=== PATIENT | male | born 2005 | race Caucasian/White ===

== ENCOUNTER 2025-04-16 14:27 | Emergency (ER) | payer BC, SELFPAY ==
--- OUTSIDE RECORDS SUMMARY | 2025-04-16 14:32 | XMS_ITS | Clinical Summary ---
Author Organization [email or web address] Address [address] [place] [address] Care Team Providers Care Spd Tech Name Role Phone Unavailable Primary Care Provider Unavailabl e Source Comments [email or web address],non-owned Affiliates and Associated Physician Practices is amultiple site organization consisting of ambulatory clinics and hospital sitesin [place], [place], [place] and [place]. This disclosure is being madepursuant to the Care Everywhere program and may not contain all information available regarding this patient. Last updated 18.[email or web address] Allergies No known active allergies Medications * Be aware that medications may not be up to date on this document. Alwaysverify current medications with the patient. 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 Gender Identity Not on file Sexual Orientation Not on file Last Filed Vital Signs Vital Sign Reading Time Taken Comments Blood Pressure - - Pulse - - Temperature - - Respiratory Rate - - Oxygen Saturation - - Inhaled Oxygen Concentration - - Weight 57.7 kg (127 lb 3.3 oz) 01/01/2016 8:22 A M CDT Height 158 cm (5' 2.21) 01/01/2016 8:22 AM CDT Body Mass Index 23.11 01/01/2016 8:22 AM CDT Plan of Treatment Health Maintenance Due Date Last Done Comments HIV SCREENING 2018 HPV VACCINE (1 - Male 3-dose series) 2018 MENINGOCOCCAL (Group B) VACC INE SHARED DECISION-MAKING (1 of 2 - Standard) 2019 HEPATITIS C SCREENING 02/04/2021 DTAP/TDAP/TD VACCINES (1 - Tdap) 2022 HEPATITIS B VACCINE (1 of 3 - 19+ 3-dose series) 2022 COVID-19 VACCINE (1 - 2023-2 5 season) 2024 DEPRESSION SCREENING 10/17/2024 INFLUENZA VACCINE (Season Ended) 2025 ZOSTER VACCINE (1 of 2) 2053 HIB VACCINE Aged Out No longer eligi ble based on patient's age to complete this topic MENINGOCOCCAL GROUPS A/C/Y/W VACCINE Aged Out No longer eligible b ased on patient's age to complete this topic PNEUMOCOCCAL VACCINE Aged Out No long er eligible based on patient's age to complete this topic Insurance
--- NOTE | 2025-04-16 15:07 | ECG_ITS ---
Test Date: 2025-04-16 15:38:51 Measurements Intervals [place] Rate: 79 P: 36 WV: 150 QRS: 51 QRSD: 88 T: 40 QT: 336 QTc: 386 Interpretive Statements SINUS RHYTHM WITH SINUS ARRHYTHMIA No previous ECG available for comparison Electronically Signed On 04-16-2025 18:14:15 CDT by Didier He
[2025-04-16 15:28] VITALS: BP 121/73; PULSE 86; RESP 16; TEMP 36.6; O2SAT 100; O2SAT 99
--- OUTSIDE RECORDS SUMMARY | 2025-04-16 15:56 | XMS_ITS | Clinical Summary ---
Author Organization [facility] Address [address] [place] [id number] Care Team Providers Care Broker Agricultural Produce Name Role Phone None, Provider MD Primary Care Provider Unavaila ble Allergies No known active allergies Medications No known medications Immunizations Immunization Administration Dates Next Due Tdap (Boostrix) 02/11/2024 Social History Tobacco Use Types Packs/Day Years Used Date Smoking Tobacco: Never Assessed Sex and Gender Information Value Date Recorded Sex Assigned at Not on file Legal Sex Male 8:39 AM CDT Gender Identity Not on file Sexual Orientation Not on file Last Filed Vital Signs Vital Sign Reading Time Taken Comments Blood Pressure 115/84 02/11/2024 9:00 AM CDT Pulse 81 02/11/2024 9:00 AM CDT Temperature 36.6 C (97.8 F) 02/11/2024 9:00 AM CDT Respiratory Rate 18 02/11/2024 9:00 AM CDT Oxygen Saturation 97% 02/11/2024 9:00 AM CDT Inhaled Oxygen Concentration - - Weight 104.3 kg (230 lb) 02/11/2024 9:00 AM CDT Height 177.8 cm (5' 10) 02/11/2024 9:00 AM CDT Body Mass Index 33 02/11/2024 9:00 AM CDT Plan of Treatment Health Maintenance Due Date Last Done Comments Annual Physical 2006 Meningococcal B Vaccine (1 of 2 - Standard) 2019 Hepatitis C 2021 COVID-19 Vaccine (2 - season) 2024 06/23/2021 DTaP, Tdap and Td Vaccines (8 - Td or Tdap) 02/10/2034 02/11/2024, 06/27/2014, 02/13/2008, Additional history exists Hepatitis B Vaccines Completed 2003, 2003, 2003 Pneumococcal Vaccine: Pediatrics (0 to 5 Years) and At-Risk Patients (6 to 49 Years) Aged Out 2003, 2003, 2003, Additional history exists No longer eligible based on patient's age to complete this topic Meningococcal Vaccine Aged Out 06/27/2014 No jeni paulo eligible based on patient's age to complete this topic HPV Vaccines Completed 12/09/2017, 06/08/2017 RSV Immunizations Under 20 Months Aged Out No longer eligible based on patient's age to complete this topic Insurance [facility] Care Teams Broker Agricultural Produce Relationship Specialty Start Date End Date None, Provider, PCP - General UNKNOWN PHYSICIAN SPECIALTY 02/11/24
--- OUTSIDE RECORDS SUMMARY | 2025-04-16 15:56 | XMS_ITS | Clinical Summary ---
Author Organization [facility] [employer] Address [address] [place] [address] Care Team Providers Care Funeral Planning Counselor Name Role Phone Unavailable Primary Care Provider Unavailabl e Source Comments [facility] [employer],non-owned Affiliates and Associated Physician Practices is amultiple site organization consisting of ambulatory clinics and hospital sitesin [place], [place], [place] and [place]. This disclosure is being madepursuant to the Care Everywhere program and may not contain all information available regarding this patient. 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
--- NOTE | 2025-04-16 16:11 | ED_ITS ---
HPI - Syncope General Chief Complaint: Syncope Stated Complaint: syncopal episode at work Time Seen by Provider: 04/16/25 15:06 History of Present Illness HPI narrative: 20-year-old otherwise healthy male with no past medical history presenting to the emergency department after a syncopal event. This event was witnessed by coworkers and was proceeded by episodes of him hiccuping. He states he was eating lunch and just finished and he felt like he had to hiccup and that sensation lingered briefly in his upper chest and throat and he passed out very briefly for about 10-15 seconds before regaining consciousness and acting appropriately without any postictal phase. No seizure activity such as tremulousness or extremity shaking. No history of this happening to in the past. No headache or vision changes. Patient denies any chest discomfort, shortness of breath, back pain. No weakness or fatigue he is ambulatory. Does not take any prescription medications. Takes medications for allergies otherwise no medical conditions. Related Data Allergies Allergy/AdvReac Type Severity Reaction Status Date / Time No Known Allergies Allergy Mild Verified 08/08/10 21:57 Review of Systems 2 Review of Systems: As reviewed above in HPI Exam 2 Narrative: GENERAL: [Well-appearing, well-nourished, and in no acute distress.] HEAD: [Normocephalic, atraumatic.] EYES: [PERRLA and EOMI.] ENT: Nares clear, no rhinorrhea or epistaxis. Mucous membranes moist. NECK: Supple. CHEST: [Clear to auscultation. No respiratory distress.] HEART: [Regular rate and rhythm]. No murmur heard. [Normal peripheral pulses.] ABDOMEN: [Soft, nondistended], [nontender], [No rigidity or guarding] EXTREMITIES: Normal range of motion. [No edema.] SKIN: Warm, dry, no rash. NEURO: [No focal deficits]. Alert and oriented [x3.] PSYCH: [Normal mood and affect.] Course Vital Signs Vital signs: Vital Signs Temperature 36.6 C 04/16/25 15:28 Pulse Rate 86 04/16/25 15:28 Respiratory Rate 16 04/16/25 15:28 Blood Pressure 121/73 04/16/25 15:28 Pulse Oximetry 100 04/16/25 15:28 Oxygen Delivery Room Air 04/16/25 15:28 Temperature 36.6 C 04/16/25 15:28 Pulse Rate 86 04/16/25 15:28 Respiratory Rate 16 04/16/25 15:28 Blood Pressure 121/73 04/16/25 15:28 Pulse Oximetry 99 04/16/25 15:28 Oxygen Delivery Room Air 04/16/25 15:28 MDM - Syncope MDM Narrative Medical decision making narrative: 20-year-old otherwise healthy male with no past medical history presenting to the emergency department after a syncopal event. This event was witnessed by coworkers and was proceeded by episodes of him hiccuping. He states he was eating lunch and just finished and he felt like he had to hiccup and that sensation lingered briefly in his upper chest and throat and he passed out very briefly for about 10-15 seconds before regaining consciousness and acting appropriately without any postictal phase. No seizure activity such as tremulousness or extremity shaking. No history of this happening to in the past. No headache or vision changes. Patient denies any chest discomfort, shortness of breath, back pain. No weakness or fatigue he is ambulatory. Does not take any prescription medications. Takes medications for allergies otherwise no medical conditions. Patient has an unremarkable neurological assessment and is hemodynamically stable. Suspicion presently is that he had a vasovagal event after he was hiccuping and this may have caused his symptoms as there are no signs or symptoms of seizure activity or ictal/postictal phase. He is mentating appropriately without any nausea or vomiting and unremarkable cardiovascular neurological exam. Will obtain labs and in EKG as well as a glucose to see if there is any other potential causes or concerns and he was placed on quality assurance monitor chassis and pulse oximetry while here in the ED. patient can likely safely go home after workup if unremarkable findings. Patient's labs are unremarkable without any electrolyte problems, normal kidney function, normal hemoglobin and white blood cell count. EKG with normal sinus rhythm, glucose normal. Patient observed in the ER for several hours without any recurrence of his symptoms and he remained hemodynamically stable and can be safely discharged at this time. Medical Records Attestation: I reviewed the patient's medical records. Lab Data Attestation: I reviewed the patient's lab results. 04/16/25 16:09 04/16/25 16:09 Labs: Lab Results 04/16/25 04/16/25 Range/Units 15:36 16:09 WBC 7.6 (4.5-10.0) K/mm3 RBC 5.54 (4.6-6.20) M/mm3 Hgb 15.5 (14.0-18.0) g/dL Hct 47.0 (42.0-52.0) % MCV 84.8 (80-100) fl MCH 28.0 (26-34) pg MCHC 33.0 (32-36) g/dl RDW 12.9 (11.5-14.5) % Plt Count 300 (150-375) k/mm3 MPV 9.9 (7.4-10.4) fl Immature Gran % (Auto) 0.3 (0-0.5) % Neut % (Auto) 76.4 H (45.5-73.1) % Lymph % (Auto) 16.0 L (18.3-44.2) % Graham % (Auto) 5.8 (2.6-8.5) % Eos % (Auto) 1.1 (0-4.4) % Baso % (Auto) 0.4 (0.2-1.2) % Lymph # (Auto) 1.22 (0.9-3.2) K/mm3 Graham # (Auto) 0.4 (0.1-0.6) K/mm3 Eos # (Auto) 0.1 (0-0.3) K/mm3 Baso # (Auto) 0.0 (0.0-0.1) K/mm3 Abs Immat Gran (auto) 0.02 (0.00-0.031) K/mm3 Absolute Neuts (auto) 5.8 (1.3-6.7) K/mm3 Absolute Nucleated RBC 0.000 (0.0-0.012) K/mm3 Nucleated RBC % 0.0 (0.0-0.2) % Sodium 140 (137-145) mmol/L Potassium 4.2 (3.4-5.0) mmol/L Chloride 105 (98-107) mmol/L Carbon Dioxide 27 (22-30) mmol/L Anion Gap 8 (4-12) mmol/L BUN 15 (9-20) mg/dL Creatinine 1.05 (0.7-1.3) mg/dL Estim Creat Clear Calc 123 ml/min Estimated GFR > 60 (59 - ) Glucose 91 (65-110) mg/dL POC Capillary Glucose 101 (65-105) mg/dl Calcium 9.3 (8.4-10.2) mg/dL Discharge Plan Discharge Clinical Impression: Vasovagal syncope Patient Disposition: Home Condition: Stable Instructions: Antibiotic Form, Syncope (ED) Additional Instructions: All of your laboratory studies and EKG are normal and your symptoms are likely benign in nature possibly from a vasovagal syncopal event. Follow-up with regular primary care provider. Return with any recurrence or emergent concerns. Patient Language: Lao Follow-up/Referrals: Tavon,Sancho Vasquez MD [Primary Care Provider] - Time of Disposition: 17:22
[2025-04-16 16:20] LABS: Hematocrit 47.0 % (42.0-52.0); Hemoglobin 15.5 g/dL (14.0-18.0); Immature Granulocyte Percent A 0.3 % (0-0.5); Lymphocytes Absolute Auto 1.22 K/mm3 (0.9-3.2); Mean Corpuscular HGB Conc 33.0 g/dl (32-36); Mean Corpuscular Hemoglobin 28.0 pg (26-34); Mean Corpuscular Volume 84.8 fl (80-100); Nucleated Red Blood Cells Absolute Auto 0.000 K/mm3 (0.0-0.012); Nucleated Red Blood Cells Perc 0.0 % (0.0-0.2); Platelet Count Result 300 k/mm3 (150-375); Red Blood Count 5.54 M/mm3 (4.6-6.20); White Blood Count 7.6 K/mm3 (4.5-10.0)
[2025-04-16 16:30] LABS: Anion Gap 8 mmol/L (4-12); Blood Urea Nitrogen 15 mg/dL (9-20); Calcium 9.3 mg/dL (8.4-10.2); Carbon Dioxide 27 mmol/L (22-30); Chloride 105 mmol/L (98-107); Estimated CRCL calculation 123 ml/min; Estimated Glomerular Filt Rate > 60; Glucose 91 mg/dL (65-110); Potassium 4.2 mmol/L (3.4-5.0); Sodium 140 mmol/L (137-145)
[2025-04-16 17:28] VITALS: BP 131/95; PULSE 85; RESP 20; TEMP 36.8; O2SAT 99
== END 2025-04-16 17:29 | disposition home or self-care (01) ==
PROVIDERS: Emergency Provider Student in an Organized Health Care Education/Training Program; PCP Internal Medicine
DX: R55 Syncope and collapse (principal)
CPT/HCPCS: 36415; 80048; 82948; 85025; 93005; 99283